=== PATIENT | female | born 2005 | race Caucasian/White ===

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

== ENCOUNTER 2024-02-04 07:35 | Inpatient (IN) ==
[2024-02-04 08:50] LABS: Urine Benzodiazepine Screen None Detected (None Detect); Urine Cannabinoids Screen Presumptive Positive (None Detect); Urine Opiates Screen None Detected (None Detect)
[2024-02-04 12:22] LABS: ABS Lymphocytes 1.3 10^3/uL (1.0-4.8); ABS Monocytes 0.3 10^3/uL (0.0-0.9); ABS Neutrophils 3.9 10^3/uL (1.5-7.6); Eosinophil % 0.3 %; Hematocrit 39.1 % (35-45); Hemoglobin 13.9 g/dL (11.5-14.3); Lymphocyte % 22.7 %; Mean Corpuscular Hemoglobin 31.6 pg (27-33); Mean Corpuscular Hgb Conc 35.7 g/dL (31-36); Mean Corpuscular Volume 88.5 fL (80-97); Platelet Count 289 10^3/uL (150-450); Red Blood Count 4.42 10^6/uL (3.63-4.92); Red Cell Distribution Width 12.6 % (12-17); White Blood Count 5.5 10^3/uL (3.8-11.8)
[2024-02-04 13:02] LABS: ALT 11 U/L (7-52); AST 16 U/L (13-39); Acetaminophen < 15 mcg/mL; Albumin 4.9 g/dL (3.2-5.2); Albumin/Globulin Ratio 2.3 (1-3); Alcohol, S < 13 mg/dL (<13); Alkaline Phosphatase 57 U/L (35-149); Anion Gap 12 mmol/L (2-16); Blood Urea Nitrogen 6 mg/dL (6-24); CO2 Carbon Dioxide 24 mmol/L (22-32); Calcium 9.7 mg/dL (8.6-10.3); Chloride 104 mmol/L (101-111); Creatinine, Serum 0.73 mg/dL (0.51-0.95); Globulin 2.1 g/dL (2-4); Glucose 113 mg/dL (70-100); Potassium 3.3 mmol/L (3.5-5.0); Salicylate < 2.50 mg/dL (<30); Sodium 140 mmol/L (135-145); Total Bilirubin 0.5 mg/dL (0.2-1.0); eGFR CKD-EPI 120.7 (>60)
[2024-02-04 13:09] LABS: HCG Pregnancy < 0.60 mIU/mL
[2024-02-04] MEDS ORDERED: Al Hydrox/Mg Hydrox/Simet LIQ 30 ML UDC PO PRN (13:10)
[2024-02-04 13:18] LABS: TSH Ultra Thyroid Stim Horm 0.64 mcIU/mL (0.34-5.60)
[2024-02-04] MEDS: Nicotine GUM 4MG FRUIT FLAVOR PO ONE (15:12)
[2024-02-04] MEDS: Nicotine PATCH 21 MG/24 HR PATCH ONE (15:12)
[2024-02-04] MEDS: Nicotine GUM 4MG FRUIT FLAVOR PO PRN (17:26)
[2024-02-04] MEDS: Nicotine PATCH 21 MG/24 HR PATCH TRANSDERM SCH (19:47)
[2024-02-04 21:43] VITALS: BP 121/84
[2024-02-05] MEDS: Vitamin THERAPEUTIC TAB PO SCH (09:07)
== END 2024-02-05 14:30 | disposition home or self-care (01) | DRG 752 ==
LOC: ED 07:35 → BSU 13:10
PROVIDERS: ADMIT Psychiatry & Neurology Psychiatry; ATTEND Psychiatry & Neurology Psychiatry